=== PATIENT | male | born 1990 | race Caucasian/White ===

== ENCOUNTER 2018-09-24 19:50 | Emergency (ER) | payer SELFPAY ==
[~2018-09-24] VITALS: Ht 172.7 cm; Wt 86.0 kg
[2018-09-24 21:16] VITALS: BP 128/74
== END 2018-09-25 03:03 | disposition left against medical advice (07) ==
LOC: ER 19:50
DX: R10.9 Unspecified abdominal pain (principal); R11.10 Vomiting, unspecified; R19.7 Diarrhea, unspecified; Z53.21 Procedure and treatment not carried out due to patient leaving prior to being seen by health care provider